=== PATIENT | female | born 1995 | race Caucasian/White ===

== ENCOUNTER 2016-10-22 01:32 | Outpatient (CLI) | payer OTHER ==
[~2016-10-22] VITALS: Ht 160 cm; Wt 95.0 kg
[~2016-10-22 01:32] MED LIST: AMOX TR-K CLV1 EAC4 PO; AUGMENTIN875 MG PO; CLEOCIN300 MG PO; DEPO-PROVER150 MG/ML IM; GABAPENTIN100 MG PO; LANTUS 3 M100 UNITS1 SC; NOVOLOG 10100 UNITS/ SC; SUDAFED 12-HOU120 MG PO; SYNTHROID100 MCG PO; VENTOLIN HFA18 GM IH
[2016-10-22 01:37] VITALS: BP 97/55
[2016-10-22 01:52] LABS: ADD MIUA? YES; BILIRUBIN NEGATIVE; BLOOD NEGATIVE; COLOR STRAW ((YELLOW)); GLUCOSE (STRIP) >=500; KETONES 80; LEUKOCYTES NEGATIVE; NITRITE NEGATIVE; PROTEIN (STRIP) NEGATIVE; SPECIFIC GRAVITY 1.008 (1.000-1.030); UROBILINOGEN 0.2 MG/DL (0.2-1.0)
[2016-10-22 01:57] LABS: BACTERIA RARE /HPF; EPITHELIAL CELLS 3+ /HPF; MUCUS NONE SEEN /LPF; RED BLOOD CELLS 0-5 /HPF (0-5); UCUL ADDED? NO; WHITE BLOOD CELLS 0-5 /HPF (0-5)
[2016-10-22 02:06] LABS: EOSINOPHIL (%) 0.2 % (0-5); IMMATURE GRANULOCYTE (%) 0.5 % (0.0-0.7); IMMATURE GRANULOCYTE COUNT 0.5 K/uL; LYMPHOCYTE COUNT 0.8 K/uL (1.0-2.8); MCH 29.8 PG (29.0-34.0); MCHC 33.9 G/DL (30.0-36.0); MCV 87.8 FL (83-99); MEAN PLAT.VOLUME 9.8 uM^3 (9.5-12.4); MONOCYTE (%) 8.7 % (3-12); MONOCYTE COUNT 0.9 K/uL (0-0.8); NEUTROPHIL (%) 82.6 % (45-76); NEUTROPHIL COUNT 8.4 K/uL (1.8-6.4); PLATELET COUNT 316 K/uL (156-360); RBC DIS.WIDTH-CV 13.9 % (11.8-14.6); RBC DIS.WIDTH-SD 43.5 % (39-53); RED BLOOD COUNT 3.76 M/uL (3.80-5.20); WHITE BLOOD COUNT 10.2 K/uL (4.1-10.2)
[2016-10-22 02:11] LABS: CHLORIDE 105 mEq/L (99-109); POTASSIUM 3.5 mEq/L (3.7-5.4)
[2016-10-22 02:12] LABS: SODIUM 133 mEq/L (136-147)
[2016-10-22] MEDS ORDERED: NOVOLOG 10100 UNITS/ SC (02:12)
[2016-10-22 02:14] LABS: GLUCOSE 271 mg/dL (70-99)
[2016-10-22] MEDS ORDERED: LANTUS 10100 UNITS/ SC (02:14)
[2016-10-22 02:15] LABS: ANION GAP 10 MEQ/L (2-14)
[2016-10-22 02:16] LABS: TOTAL BILIRUBIN 0.4 mg/dL (0.0-1.0)
[2016-10-22 02:17] LABS: ALKALINE PHOSPHATASE 83 IU/L (3-129); GFR ESTIMATE (CALCULATED) > 59 mL/min/
[2016-10-22] MEDS ORDERED: MAKENA250 MG/11 IM (02:17)
[2016-10-22 02:19] LABS: UREA NITROGEN (BUN) 5 mg/dL (9-23)
[2016-10-22 03:05] VITALS: BP 97/60
[2016-10-22 03:28] LABS: INFLUENZA A VIRAL ANTIGEN POSITIVE; INFLUENZA B VIRAL ANTIGEN NEGATIVE
[2016-10-22 07:29] VITALS: BP 94/48
[2016-10-22 07:35] LABS: POINT-OF-CARE METER ID UU13113801
[2016-10-22] MEDS ORDERED: OSELTAMIVIR PHO75 MG PO ×2 (08:02→08:05)
[2016-10-22 10:13] LABS: POINT-OF-CARE METER ID UU13113801
[2016-10-22 11:55] LABS: POINT-OF-CARE METER ID UU13113801
[2016-10-22 13:34] VITALS: BP 96/52
[2016-10-22 13:50] LABS: POINT-OF-CARE METER ID UU13113801
[2016-10-22 15:16] VITALS: BP 107/64
[2016-10-22 15:47] LABS: POINT-OF-CARE METER ID UU13113801
== END 2016-10-22 15:40 | disposition home or self-care (01) ==
LOC: LDRP-OP 01:32 → 2WEST 01:33
PROVIDERS: Nurse Practitioner; Obstetrics & Gynecology
DX: O99.89 Other specified diseases and conditions complicating pregnancy, childbirth and the puerperium (principal); Z3A.00 Weeks of gestation of pregnancy not specified
CPT/HCPCS: 59025; 80053; 81003; 82948; 85025; 87502; 94640; G0378; J1815; J7120

== ENCOUNTER 2017-01-28 17:04 | Outpatient (CLI) | payer OTHER ==
[2017-01-28] VITALS (7 sets, daily range): BP systolic 110–122; BP diastolic 51–62
[~2017-01-28 17:04] MED LIST changes: +LANTUS 10100 UNITS/ SC; +MAKENA250 MG/11 IM; +OSELTAMIVIR PHO75 MG PO
[2017-01-28 18:23] LABS: EOSINOPHIL (%) 1.5 % (0-5); EOSINOPHIL COUNT 0.2 K/uL (0-0.3); HEMATOCRIT 32.4 % (36.0-46.0); IMMATURE GRANULOCYTE (%) 0.6 % (0.0-0.7); IMMATURE GRANULOCYTE COUNT 0.1 K/uL; INSTRUMENT ABS NEUTROPHIL CT 8.4 K/uL; LYMPHOCYTE COUNT 2.3 K/uL (1.0-2.8); MCH 28.8 PG (29.0-34.0); MCV 87.3 FL (83-99); MEAN PLAT.VOLUME 9.5 uM^3 (9.5-12.4); MONOCYTE (%) 7.5 % (3-12); MONOCYTE COUNT 0.9 K/uL (0-0.8); NEUTROPHIL (%) 70.8 % (45-76); NEUTROPHIL COUNT 8.4 K/uL (1.8-6.4); PLATELET COUNT 283 K/uL (156-360); RBC DIS.WIDTH-CV 14.4 % (11.8-14.6); RBC DIS.WIDTH-SD 45.5 % (39-53); RED BLOOD COUNT 3.71 M/uL (3.80-5.20); WHITE BLOOD COUNT 11.8 K/uL (4.1-10.2)
[2017-01-28 18:49] LABS: ALKALINE PHOSPHATASE 106 IU/L (3-129); ANION GAP 9 MEQ/L (2-14); CHLORIDE 104 MEQ/L (99-109); GFR ESTIMATE (CALCULATED) > 59 mL/min/; GLUCOSE 128 mg/dL (70-99); POTASSIUM 3.4 MEQ/L (3.7-5.4); SAMPLE HEMOLYSIS CHECK 0; SAMPLE ICTERIC CHECK 0; SAMPLE LIPEMIA CHECK 0; SODIUM 135 MEQ/L (136-147); TOTAL BILIRUBIN 0.3 MG/DL (0.0-1.0); UREA NITROGEN (BUN) 5 mg/dL (9-23)
[2017-01-28] MEDS ORDERED: FIORICET,ESG1 TABLET PO (20:36)
[2017-01-28 21:56] LABS: UR CREATININE CONCENTRATION 362.2 MG/DL
== END 2017-01-28 22:40 | disposition home or self-care (01) ==
LOC: LDRP-OP 17:04 → 2WEST 17:05 → LDRP-OP 03-28 15:44
PROVIDERS: Nurse Practitioner
DX: O12.13 Gestational proteinuria, third trimester (principal); O99.89 Other specified diseases and conditions complicating pregnancy, childbirth and the puerperium; Z3A.35 35 weeks gestation of pregnancy; R51 Headache; O24.013 Pre-existing type 1 diabetes mellitus, in pregnancy, third trimester; E10.9 Type 1 diabetes mellitus without complications; Z79.4 Long term (current) use of insulin; O99.283 Endocrine, nutritional and metabolic diseases complicating pregnancy, third trimester; E03.9 Hypothyroidism, unspecified; O99.513 Diseases of the respiratory system complicating pregnancy, third trimester; J45.909 Unspecified asthma, uncomplicated
CPT/HCPCS: 59025; 80053; 82570; 84156; 85025; G0378

== ENCOUNTER 2017-01-30 13:53 | Inpatient (IN) | payer OTHER ==
[2017-01-30] VITALS (8 sets, daily range): BP systolic 94–127; BP diastolic 44–67
[~2017-01-30] VITALS: Ht 160 cm; Wt 91.2 kg
[~2017-01-30 13:53] MED LIST changes: +FIORICET,ESG1 TABLET PO
[2017-01-30] MEDS ORDERED: CEFTIN500 MG PO (16:28)
[2017-01-30 16:37] LABS: EOSINOPHIL (%) 5.1 % (0-5); EOSINOPHIL COUNT 0.6 K/uL (0-0.3); HEMATOCRIT 37.9 % (36.0-46.0); IMMATURE GRANULOCYTE (%) 0.7 % (0.0-0.7); IMMATURE GRANULOCYTE COUNT 0.1 K/uL; INSTRUMENT ABS NEUTROPHIL CT 7.1 K/uL; LYMPHOCYTE COUNT 2.3 K/uL (1.0-2.8); MCH 28.7 PG (29.0-34.0); MCHC 32.5 G/DL (30.0-36.0); MCV 88.3 FL (83-99); MEAN PLAT.VOLUME 9.5 uM^3 (9.5-12.4); MONOCYTE (%) 8.7 % (3-12); NEUTROPHIL (%) 64.4 % (45-76); NEUTROPHIL COUNT 7.1 K/uL (1.8-6.4); PLATELET COUNT 290 K/uL (156-360); RBC DIS.WIDTH-CV 14.8 % (11.8-14.6); RBC DIS.WIDTH-SD 47.2 % (39-53); RED BLOOD COUNT 4.29 M/uL (3.80-5.20); WHITE BLOOD COUNT 11.1 K/uL (4.1-10.2)
[2017-01-30 16:49] LABS: ADD MIUA? YES; BILIRUBIN NEGATIVE; BLOOD NEGATIVE; COLOR YELLOW ((YELLOW)); GLUCOSE (STRIP) 50; KETONES 80; LEUKOCYTES TRACE; NITRITE NEGATIVE; PROTEIN (STRIP) 30; SPECIFIC GRAVITY 1.016 (1.000-1.030); UROBILINOGEN 0.2 MG/DL (0.2-1.0)
[2017-01-30 17:15] LABS: CASTS NONE SEEN /LPF; EPITHELIAL CELLS 4+ /HPF; MUCUS 2+ /LPF
[2017-01-30 17:16] LABS: BACTERIA 2+ /HPF; RED BLOOD CELLS RARE /HPF (0-5); UCUL ADDED? NO; WHITE BLOOD CELLS 0-5 /HPF (0-5)
[2017-01-30 17:25] LABS: UR CREATININE CONCENTRATION 101.4 MG/DL
[2017-01-30 17:26] LABS: ALKALINE PHOSPHATASE 132 IU/L (3-129); ANION GAP 15 MEQ/L (2-14); CHLORIDE 102 MEQ/L (99-109); GFR ESTIMATE (CALCULATED) > 59 mL/min/; GLUCOSE 109 mg/dL (70-99); POTASSIUM 4.5 MEQ/L (3.7-5.4); SAMPLE HEMOLYSIS CHECK 0; SAMPLE ICTERIC CHECK 0; SAMPLE LIPEMIA CHECK 0; SODIUM 132 MEQ/L (136-147); TOTAL BILIRUBIN 0.5 MG/DL (0.0-1.0); UREA NITROGEN (BUN) 5 mg/dL (9-23)
[2017-01-30 21:55] LABS: POINT-OF-CARE METER ID UU13113801
[2017-01-31] VITALS (10 sets, daily range): BP systolic 113–136; BP diastolic 57–80
[2017-01-31 03:24] LABS: POINT-OF-CARE METER ID UU13113801
[2017-01-31 07:50] LABS: POINT-OF-CARE METER ID UU13113801
[2017-01-31 11:50] LABS: CARBOXY HGB 0 % (0-5); METHEMOGLOBIN 1.9 % (0-1.5)
[2017-01-31 11:51] LABS: PCO2 71 mm Hg (35-45); PO2 < 28 mm Hg (80-100); SITE CORD GAS; pH < 6.90 (7.35-7.45)
[2017-01-31 12:48] LABS: POINT-OF-CARE METER ID UU13113675; POINT-OF-CARE USER ID 515036437
[2017-01-31 17:31] LABS: CARBOXY HGB 2.5 % (0-5); PCO2 < 19 mm Hg (35-45); PO2 122 mm Hg (80-100); pH 7.06 (7.35-7.45)
[2017-01-31 17:33] LABS: COMMENTS - BLOOD GASES A+C+; SITE RR
[2017-01-31 17:34] LABS: FI02 21 %; TOTAL RESP RATE 26 resp/min
[2017-01-31 18:27] LABS: CHLORIDE 109 mEq/L (99-109); HEMATOCRIT 40.9 % (36.0-46.0); MCH 28.2 PG (29.0-34.0); MCHC 30.8 G/DL (30.0-36.0); MCV 91.5 FL (83-99); MEAN PLAT.VOLUME 9.6 uM^3 (9.5-12.4); PLATELET COUNT 445 K/uL (156-360); RBC DIS.WIDTH-CV 15.2 % (11.8-14.6); RBC DIS.WIDTH-SD 50.1 % (39-53); RED BLOOD COUNT 4.47 M/uL (3.80-5.20); SODIUM 136 mEq/L (136-147); WHITE BLOOD COUNT 24.2 K/uL (4.1-10.2)
[2017-01-31 18:28] LABS: POTASSIUM 5.7 mEq/L (3.7-5.4)
[2017-01-31 18:30] LABS: ANION GAP 23 MEQ/L (2-14)
[2017-01-31 18:33] LABS: UREA NITROGEN (BUN) 6 mg/dL (9-23)
[2017-01-31 18:36] LABS: GFR ESTIMATE (CALCULATED) > 59 mL/min/; GLUCOSE 384 mg/dL (70-99)
[2017-01-31 19:04] LABS: POINT-OF-CARE METER ID UU13113803
[2017-01-31 19:41] LABS: CHLORIDE 109 mEq/L (99-109); POTASSIUM 5.3 mEq/L (3.7-5.4); SODIUM 137 mEq/L (136-147)
[2017-01-31 19:45] LABS: ANION GAP 23 MEQ/L (2-14)
[2017-01-31 19:47] LABS: GFR ESTIMATE (CALCULATED) > 59 mL/min/
[2017-01-31 19:48] LABS: UREA NITROGEN (BUN) 7 mg/dL (9-23)
[2017-01-31 19:52] LABS: GLUCOSE 428 mg/dL (70-99)
[2017-01-31 20:15] LABS: Estimated Average Glucose 180 mg/dL (70-123); HEMOGLOBIN A1c (GLYCOHEMOGLOB) 7.9 % HGB (Below 5.7)
[2017-01-31 20:38] LABS: POINT-OF-CARE METER ID UU13113803
[2017-01-31 21:39] LABS: POINT-OF-CARE METER ID UU13113803
[2017-01-31 23:42] LABS: POINT-OF-CARE METER ID UU13113803
[2017-02-01] VITALS (22 sets, daily range): BP systolic 100–140; BP diastolic 56–76
[2017-02-01 00:28] LABS: CHLORIDE 112 mEq/L (99-109); POTASSIUM 4.4 mEq/L (3.7-5.4); SODIUM 134 mEq/L (136-147)
[2017-02-01 00:29] LABS: GLUCOSE 208 mg/dL (70-99)
[2017-02-01 00:31] LABS: ANION GAP 16 MEQ/L (2-14)
[2017-02-01 00:33] LABS: GFR ESTIMATE (CALCULATED) > 59 mL/min/
[2017-02-01 00:34] LABS: UREA NITROGEN (BUN) 5 mg/dL (9-23)
[2017-02-01 00:51] LABS: POINT-OF-CARE METER ID UU14174217; POINT-OF-CARE USER ID 609231305
[2017-02-01 01:38] LABS: POINT-OF-CARE METER ID UU13113731; POINT-OF-CARE USER ID 609231305
[2017-02-01 02:38] LABS: POINT-OF-CARE METER ID UU13113731; POINT-OF-CARE USER ID 609231305
[2017-02-01 03:35] LABS: POINT-OF-CARE METER ID UU13113731
[2017-02-01 04:49] LABS: POINT-OF-CARE METER ID UU13113731
[2017-02-01 05:48] LABS: POINT-OF-CARE METER ID UU13113731
[2017-02-01 06:46] LABS: POINT-OF-CARE METER ID UU13113731
[2017-02-01 07:44] LABS: METH RESISTANT S AUREUS PCR NEGATIVE (NEGATIVE)
[2017-02-01 07:45] LABS: PROBE CHECK PASS; SPECIMEN PROCESSING CONTROL PASS
[2017-02-01 07:47] LABS: POINT-OF-CARE METER ID UU13113731
[2017-02-01 07:55] LABS: CHLORIDE 111 mEq/L (99-109); HEMATOCRIT 28.6 % (36.0-46.0); MCH 28.1 PG (29.0-34.0); MCHC 33.2 G/DL (30.0-36.0); RBC DIS.WIDTH-CV 14.7 % (11.8-14.6); RBC DIS.WIDTH-SD 45.1 % (39-53); SODIUM 138 mEq/L (136-147)
[2017-02-01 07:56] LABS: CHLORIDE 110 mEq/L (99-109); SODIUM 136 mEq/L (136-147)
[2017-02-01 07:57] LABS: GLUCOSE 123 mg/dL (70-99)
[2017-02-01 07:59] LABS: ANION GAP 12 MEQ/L (2-14)
[2017-02-01 08:00] LABS: ANION GAP 11 MEQ/L (2-14)
[2017-02-01 08:01] LABS: GFR ESTIMATE (CALCULATED) > 59 mL/min/
[2017-02-01 08:02] LABS: GFR ESTIMATE (CALCULATED) > 59 mL/min/; POTASSIUM 3.2 mEq/L (3.7-5.4); UREA NITROGEN (BUN) 3 mg/dL (9-23)
[2017-02-01 08:03] LABS: GLUCOSE 120 mg/dL (70-99); POTASSIUM 3.1 mEq/L (3.7-5.4); UREA NITROGEN (BUN) 3 mg/dL (9-23)
[2017-02-01 08:40] LABS: EOSINOPHIL (%) 0.5 % (0-5); EOSINOPHIL COUNT 0.1 K/uL (0-0.3); IMMATURE GRANULOCYTE (%) 0.7 % (0.0-0.7); IMMATURE GRANULOCYTE COUNT 0.1 K/uL; INSTRUMENT ABS NEUTROPHIL CT 9.9 K/uL; MEAN PLAT.VOLUME 9.3 uM^3 (9.5-12.4); MONOCYTE (%) 7.5 % (3-12); MONOCYTE COUNT 0.9 K/uL (0-0.8); NEUTROPHIL (%) 82.6 % (45-76); NEUTROPHIL COUNT 9.9 K/uL (1.8-6.4); PLAT.SUFFICIENCY ADEQUATE
[2017-02-01 08:50] LABS: POINT-OF-CARE METER ID UU13113731
[2017-02-01] MEDS ORDERED: NOVOLOG 10100 UNITS/ SC (09:08)
[2017-02-01 09:09] LABS: MCV 84.6 FL (83-99); PLATELET COUNT 264 K/uL (156-360); RED BLOOD COUNT 3.38 M/uL (3.80-5.20)
[2017-02-01 09:59] LABS: POINT-OF-CARE METER ID UU13113731
[2017-02-01 10:59] LABS: POINT-OF-CARE METER ID UU13113731
[2017-02-01] MEDS ORDERED: SYNTHROID200 MCG PO (11:40)
[2017-02-01 12:05] LABS: POINT-OF-CARE METER ID UU13113731
[2017-02-01 13:20] LABS: CHLORIDE 111 mEq/L (99-109); SODIUM 138 mEq/L (136-147)
[2017-02-01 13:21] LABS: GLUCOSE 155 mg/dL (70-99)
[2017-02-01 13:23] LABS: ANION GAP 13 MEQ/L (2-14)
[2017-02-01 13:25] LABS: GFR ESTIMATE (CALCULATED) > 59 mL/min/
[2017-02-01 13:26] LABS: UREA NITROGEN (BUN) 3 mg/dL (9-23)
[2017-02-01 13:47] LABS: MAGNESIUM 1.1 mg/dL (1.3-2.7)
[2017-02-01 15:59] LABS: POINT-OF-CARE METER ID UU13113731
[2017-02-01 16:24] LABS: POINT-OF-CARE METER ID UU13113731
[2017-02-01 17:01] LABS: CHLORIDE 112 mEq/L (99-109); POTASSIUM 3.2 mEq/L (3.7-5.4); SODIUM 140 mEq/L (136-147)
[2017-02-01 17:05] LABS: ANION GAP 13 MEQ/L (2-14); GLUCOSE 91 mg/dL (70-99)
[2017-02-01 17:07] LABS: GFR ESTIMATE (CALCULATED) > 59 mL/min/
[2017-02-01 17:08] LABS: UREA NITROGEN (BUN) 2 mg/dL (9-23)
[2017-02-01 18:47] LABS: POINT-OF-CARE METER ID UU13113731
[2017-02-02] VITALS (7 sets, daily range): BP systolic 118–137; BP diastolic 58–76
[2017-02-02 06:26] LABS: POINT-OF-CARE METER ID UU13113801
[2017-02-02 09:39] LABS: EOSINOPHIL (%) 2.7 % (0-5); EOSINOPHIL COUNT 0.3 K/uL (0-0.3); HEMATOCRIT 29.7 % (36.0-46.0); IMMATURE GRANULOCYTE (%) 0.7 % (0.0-0.7); IMMATURE GRANULOCYTE COUNT 0.1 K/uL; INSTRUMENT ABS NEUTROPHIL CT 7.2 K/uL; LYMPHOCYTE COUNT 1.6 K/uL (1.0-2.8); MCH 29.3 PG (29.0-34.0); MCHC 33.7 G/DL (30.0-36.0); MCV 87.1 FL (83-99); MEAN PLAT.VOLUME 9.6 uM^3 (9.5-12.4); MONOCYTE (%) 7.8 % (3-12); MONOCYTE COUNT 0.8 K/uL (0-0.8); NEUTROPHIL (%) 72.8 % (45-76); NEUTROPHIL COUNT 7.2 K/uL (1.8-6.4); PLATELET COUNT 280 K/uL (156-360); RBC DIS.WIDTH-SD 47.4 % (39-53); RED BLOOD COUNT 3.41 M/uL (3.80-5.20); WHITE BLOOD COUNT 9.9 K/uL (4.1-10.2)
[2017-02-02 11:03] LABS: ANION GAP 10 MEQ/L (2-14); CHLORIDE 108 MEQ/L (99-109); GFR ESTIMATE (CALCULATED) > 59 mL/min/; POTASSIUM 3.5 MEQ/L (3.7-5.4); SAMPLE HEMOLYSIS CHECK 0; SAMPLE ICTERIC CHECK 0; SAMPLE LIPEMIA CHECK 0; SODIUM 138 MEQ/L (136-147); UREA NITROGEN (BUN) 3 mg/dL (9-23)
[2017-02-02 11:04] LABS: GLUCOSE 240 mg/dL (70-99)
[2017-02-02 11:32] LABS: POINT-OF-CARE METER ID UU13113801
[2017-02-02 15:46] LABS: POINT-OF-CARE METER ID UU13113692
[2017-02-02 15:51] LABS: POINT-OF-CARE METER ID UU13113801
[2017-02-03 00:25] LABS: POINT-OF-CARE METER ID UU13113692
[2017-02-03 00:25] LABS: POINT-OF-CARE METER ID UU13113692
[2017-02-03 00:25] LABS: POINT-OF-CARE METER ID UU13113692
[2017-02-03 00:25] LABS: POINT-OF-CARE METER ID UU13113692
[2017-02-03 00:25] LABS: POINT-OF-CARE METER ID UU13113692
[2017-02-03 03:00] VITALS: BP 111/56
[2017-02-03 05:06] LABS: AMPHETAMINE NEGATIVE (500 ng/mL); BARBITURATES NEGATIVE (200 ng/mL); BENZODIAZEPINES NEGATIVE (150 ng/mL); COCAINE NEGATIVE (150 ng/mL); INTERNAL CONTROLS VALID? YES; METHADONE NEGATIVE (200 ng/mL); METHAMPHETAMINE NEGATIVE (500 ng/mL); OPIATES (MORPHINE) NEGATIVE (100 ng/mL); OXYCODONE PRESUMPTIVE POSITIVE (100 ng/mL); PHENCYCLIDINE NEGATIVE (25 ng/mL); PROPOXYPHENE NEGATIVE (300 ng/mL); THC CANNABINOIDS NEGATIVE (50 ng/mL); TRICYCLIC ANTIDEPRESSANTS NEGATIVE (300 ng/mL)
[2017-02-03 06:09] LABS: POINT-OF-CARE METER ID UU13113692
[2017-02-03 06:09] LABS: POINT-OF-CARE METER ID UU13113692
[2017-02-03 06:09] LABS: POINT-OF-CARE METER ID UU13113692
[2017-02-03 09:39] LABS: ANION GAP 7 MEQ/L (2-14); CHLORIDE 108 MEQ/L (99-109); GFR ESTIMATE (CALCULATED) > 59 mL/min/; POTASSIUM 3.5 MEQ/L (3.7-5.4); SAMPLE HEMOLYSIS CHECK 0; SAMPLE ICTERIC CHECK 0; SAMPLE LIPEMIA CHECK 0; SODIUM 140 MEQ/L (136-147); UREA NITROGEN (BUN) 7 mg/dL (9-23)
[2017-02-03 09:40] LABS: GLUCOSE 70 mg/dL (70-99)
[2017-02-03 11:15] LABS: POINT-OF-CARE METER ID UU13113801
[2017-02-03 16:40] LABS: MAGNESIUM 1.7 mg/dl (1.3-2.7)
[2017-02-03 16:58] LABS: POINT-OF-CARE METER ID UU13113692
[2017-02-03 23:00] VITALS: BP 131/67
[2017-02-04 07:20] VITALS: BP 139/63
[2017-02-04 07:28] LABS: ANION GAP 10 MEQ/L (2-14); CHLORIDE 107 MEQ/L (99-109); GFR ESTIMATE (CALCULATED) > 59 mL/min/; GLUCOSE 52 mg/dL (70-99); MAGNESIUM 1.6 mg/dl (1.3-2.7); POTASSIUM 3.8 MEQ/L (3.7-5.4); SAMPLE HEMOLYSIS CHECK 0; SAMPLE ICTERIC CHECK 0; SAMPLE LIPEMIA CHECK 0; SODIUM 142 MEQ/L (136-147); UREA NITROGEN (BUN) 7 mg/dL (9-23)
[2017-02-04 07:53] LABS: POINT-OF-CARE METER ID UU13113692; POINT-OF-CARE USER ID RADDNY
[2017-02-04 07:53] LABS: POINT-OF-CARE METER ID UU13113692
[2017-02-04 08:47] VITALS: BP 121/60
[2017-02-04 09:11] LABS: POINT-OF-CARE METER ID UU13113692; POINT-OF-CARE USER ID RADDNY
[2017-02-04 09:17] VITALS: BP 123/65
[2017-02-04 11:46] LABS: POINT-OF-CARE METER ID UU13113692; POINT-OF-CARE USER ID RADDNY
[2017-02-04 12:57] LABS: POINT-OF-CARE METER ID UU13113692
[2017-02-04] MEDS ORDERED: SYNTHROID100 MCG PO (13:47)
[2017-02-04] MEDS ORDERED: ENDOCET 5-3251 EACH PO (13:47)
[2017-02-04] MEDS ORDERED: IBUPROFEN800 MG PO (13:47)
[2017-02-04] MEDS ORDERED: LEVEMIR100 UNIT/2 SC (13:47)
[2017-02-05 10:09] LABS: POINT-OF-CARE METER ID UU13113692
[2017-02-05 10:55] LABS: POINT-OF-CARE METER ID UU13113692
[2017-02-05 10:58] LABS: POINT-OF-CARE METER ID UU13113731
== END 2017-02-04 14:19 | disposition home or self-care (01) | DRG 765 ==
LOC: LDRP-OP 13:53 → 2WEST 13:54 → 4WEST 01-31 11:35 → 2WEST 01-31 11:35 → 4WEST 01-31 18:30 → 2WEST 02-01 18:03 → LDRP-OP 03-28 23:10
PROVIDERS: Hospitalist; Internal Medicine Critical Care Medicine; Midwife; Nurse Practitioner Adult Health; Obstetrics & Gynecology; Physician Assistant
PROC: 10D00Z1 Extraction of Products of Conception, Low, Open Approach (ICD-10-PCS; principal; 2017-01-31)
DX: O76 Abnormality in fetal heart rate and rhythm complicating labor and delivery (principal); O75.3 Other infection during labor; O24.02 Pre-existing type 1 diabetes mellitus, in childbirth; E10.10 Type 1 diabetes mellitus with ketoacidosis without coma; E10.649 Type 1 diabetes mellitus with hypoglycemia without coma; O99.52 Diseases of the respiratory system complicating childbirth; O99.42 Diseases of the circulatory system complicating childbirth; R00.0 Tachycardia, unspecified; O99.284 Endocrine, nutritional and metabolic diseases complicating childbirth; E03.9 Hypothyroidism, unspecified; O99.214 Obesity complicating childbirth; E66.9 Obesity, unspecified; Z68.38 Body mass index [BMI] 38.0-38.9, adult; Z3A.36 36 weeks gestation of pregnancy; Z37.0 Single live birth; Z79.84 Long term (current) use of oral hypoglycemic drugs; Z79.4 Long term (current) use of insulin; J45.901 Unspecified asthma with (acute) exacerbation; J20.9 Acute bronchitis, unspecified; J01.91 Acute recurrent sinusitis, unspecified; E86.0 Dehydration
CPT/HCPCS: 36600; 59025; 71010; 76818; 80048; 80048 91; 80053; 81003; 82010; 82570; 82800; 82803; 82948; 83036; 83605; 83735; 84100; 84156; 84443; 85025; 85027; 86900; 86901; 87040; 87641; 88307; 94640; 94640 76; 99202; C9113; G0378; J0690; J1170; J1815; J2250; J2274; J2405; J3010; J3475; J7030; J7042; J7050; J7070; J7120